=== PATIENT | female | born 1955 | race Caucasian/White ===

== ENCOUNTER 2018-08-01 04:30 | Day surgery (SDC) | payer OTHER ==
[~2018-08-01 04:30] MED LIST: CALTRATE 600 +1 EACH PO; NORVASC5 MG PO; SYNTH PO; TOPROL XL25 M1 PO; ZOCOR20 MG PO
== END 2018-08-01 11:25 | disposition home or self-care (01) ==
LOC: CIR.AMB 04:30
DX: K80.10 Calculus of gallbladder with chronic cholecystitis without obstruction (principal)

== ENCOUNTER 2021-02-22 08:34 | Day surgery (SDC) | payer OTHER | END 2021-02-22 13:10 | disposition home or self-care (01) | LOC: AMB-ENDOS 08:34 | PROVIDERS: ATTEND Surgery | DX: K62.89 Other specified diseases of anus and rectum (principal); K64.4 Residual hemorrhoidal skin tags; Z20.822 Contact with and (suspected) exposure to COVID-19 ==

== ENCOUNTER 2022-05-15 09:43 | Outpatient (CLI) | payer OTHER | END 2022-05-15 09:45 | disposition home or self-care (01) | LOC: SONOGRAMA 09:43 | PROVIDERS: ATTEND Pathology Anatomic Pathology | DX: C73 Malignant neoplasm of thyroid gland (principal); D34 Benign neoplasm of thyroid gland; E04.9 Nontoxic goiter, unspecified; E04.1 Nontoxic single thyroid nodule; R59.1 Generalized enlarged lymph nodes ==